=== PATIENT | female | born 1960 | race Caucasian/White ===

== ENCOUNTER → 2016-07-21 | Outpatient (CLI) | payer OTHER ==
[~2016-07-21] MED LIST: BUPIVACAINE 0.25% 30 ML SDV ONE; LIDOCAINE 1% 30 ML SDV ONE; NA BICARBONATE 50 MEQ/50 ML VIAL ONE
--- NOTE | 2016-07-21 13:14 | US ---
Ultrasound-Guided PRP Injection of the Left Gluteal Tendons July 21, 2016 History: Patient presents with left hip pain localizing over the greater trochanter. Prior greater tr ochanteric steroid injection provided temporary relief. Previous MRI examination is reviewed prior to injection. Technique: Informed consent was obtained. A timeout was performed. 4 mL of PRP were manufactured in standard fashion. Using standard sterile technique, lidocaine local anesthetic, and direct sonographic guidance, Ankit tomas nced a 25-gauge needle into the gluteal tendons over the left greater trochanter where 3 mL of PRP we re injected along with 3 mL 0.25% Marcaine. The needle was subsequently repositioned more posteriorly , with additional 1 mL injection into the left gluteal musculature more posteriorly. Impression: Successful ultrasound-guided injection of the gluteal tendons and musculature over the l eft greater trochanter.
== END ==
LOC: FIMAGING 07:57
PROVIDERS: ATTEND Radiology Diagnostic Radiology
PROC: 3E023GC Introduction of Other Therapeutic Substance into Muscle, Percutaneous Approach (ICD-10-PCS; principal; 2016-07-21)
DX: M25.552 Pain in left hip (principal)

== ENCOUNTER → 2016-07-28 | Outpatient (CLI) | payer BC ==
--- NOTE | 2016-07-28 19:07 | MA ---
Screening Digital Mammogram Clinical Indications: Routine screening. Technique: Standard cephalocaudal and mediolateral oblique projections are obtained. This examinati on was processed by the [employer] computer-aided detection system. Comparison: July 26, 2015, July 25, 2014, July 21, 2013. Breast density: 3; 50 to 75%. Findings: CAD was reviewed. No suspicious findings are identified. Impression: Negative mammogram. BI-RADS 1. Recommendation: Routine screening is recommended in one year, as long as physical examination is mckayla ign in this patient with moderately dense breast parenchyma. [facility] will send a result letter to the patient. Negative mammography should not preclude additional workup of a clinically suspicious finding. The patient's information is entered into a reminder system with a target due date for her next mammo gram.
== END ==
LOC: BMCIMAGING 14:15
DX: Z12.31 Encounter for screening mammogram for malignant neoplasm of breast (principal)
CPT/HCPCS: G0202

== ENCOUNTER → 2016-08-04 | Outpatient (CLI) | payer BC ==
--- NOTE | 2016-08-04 10:47 | DX ---
Lumbar Spine, 4 views History: Pain x 8 months Findings: There are 5 lumbarized vertebral bodies. Lumbar alignment is anatomic. Disk spaces maintain their normal height except for moderate narrowing of the L5-S1 disk space. There is mild overriding of the right L5-S1 facet joint. Other facets look normal.. There is no evidence of spondylolysis or s pondylolisthesis. There are no osteophytes or occult fracture deformity. The SI joints look normal. Impression: 1. Mild overriding right L5-S1 facet joint. 2. Indeterminate significance for narrowing of the L5-S1 disk space. 3. Otherwise normal..
--- NOTE | 2016-08-04 10:53 | DX ---
AP PELVIS HISTORY: Pain x8 months COMPARISON: None FINDINGS: There is chondrocalcinosis of the cartilage of the pubic symphysis. There is a small calcif ication in both acetabular labral cartilages. The hip joints and pubic symphysis are normal in width. There is no soft tissue calcification or ossification other than multiple bilateral pelvic phlebolit hs, that are likely incidental findings. Impression: Chondrocalcinosis. Note that both SI joints were normal on the oblique views of the lumba r spine performed along with this examination.
== END ==
LOC: FIMAGING 08:07
PROVIDERS: ATTEND Internal Medicine
DX: M11.251 Other chondrocalcinosis, right hip (principal); M11.252 Other chondrocalcinosis, left hip

== ENCOUNTER → 2017-05-31 | Outpatient (CLI) | payer BC | LOC: BMCIMAGING 15:32 | PROVIDERS: ATTEND Family Medicine | DX: R06.02 Shortness of breath (principal); R05 Cough ==

== ENCOUNTER → 2017-07-28 | Outpatient (CLI) | payer BC | LOC: BMCIMAGING 15:39 | PROVIDERS: ATTEND Internal Medicine Rheumatology | DX: M25.551 Pain in right hip (principal); M25.552 Pain in left hip; M17.12 Unilateral primary osteoarthritis, left knee ==

== ENCOUNTER → 2017-08-03 | Outpatient (CLI) | payer BC | LOC: BMCIMAGING 08:49 | PROVIDERS: ATTEND Obstetrics & Gynecology | DX: Z12.31 Encounter for screening mammogram for malignant neoplasm of breast (principal) ==

== ENCOUNTER → 2018-05-24 | Outpatient (CLI) | payer BC | LOC: BMCIMAGING 13:11 | PROVIDERS: ATTEND Internal Medicine Endocrinology, Diabetes & Metabolism | DX: E04.9 Nontoxic goiter, unspecified (principal) | CPT/HCPCS: 76536-PO ==

== ENCOUNTER → 2018-08-05 | Outpatient (CLI) | payer BC | LOC: BMCIMAGING 13:38 | PROVIDERS: ATTEND Obstetrics & Gynecology | DX: Z12.31 Encounter for screening mammogram for malignant neoplasm of breast (principal) ==

== ENCOUNTER → 2018-12-14 | Outpatient (CLI) | payer BC | LOC: FIMAGING 07:12 ==